=== PATIENT | male | born 1960 | race Caucasian/White ===

== ENCOUNTER 2016-04-02 13:16 | Emergency (ER) | payer OTHER ==
[~2016-04-02] VITALS: Ht 167.6 cm; Wt 103.5 kg
[~2016-04-02 13:16] MED LIST: ASPIR-LOW81 MG PO; AUGMENTIN875 MG PO; CLEOCIN300 MG PO; JANUVIA100 MG PO; OMEGA III EPA1000 MG PO; PRAVASTATIN SOD40 MG PO; PRILOSEC20 MG PO
[2016-04-02 13:41] LABS: HEMATOCRIT 38.3 % (38.0-50.0); MCH 30.3 PG (29.0-34.0); MCHC 35.2 G/DL (30.0-36.0); MCV 85.9 FL (86-99); MEAN PLAT.VOLUME 10.9 uM^3 (9.0-12.4); PLATELET COUNT 186 K/uL (156-360); RBC DIS.WIDTH-CV 12.8 % (11.8-14.6); RBC DIS.WIDTH-SD 39.2 % (39-53); RED BLOOD COUNT 4.46 M/uL (4.00-5.50); WHITE BLOOD COUNT 11.4 K/uL (4.1-10.2)
[2016-04-02 13:51] LABS: CHLORIDE 106 mEq/L (99-109); POTASSIUM 4.5 mEq/L (3.7-5.4); SODIUM 139 mEq/L (136-147)
[2016-04-02 13:53] LABS: GLUCOSE 154 mg/dL (70-99)
[2016-04-02 13:54] LABS: ANION GAP 10 MEQ/L (2-14)
[2016-04-02 13:56] LABS: GFR ESTIMATE (CALCULATED) 56 mL/min/
[2016-04-02 13:57] LABS: UREA NITROGEN (BUN) 23 mg/dL (9-23)
[2016-04-02] MEDS ORDERED: PREDNISONE50 MG PO (14:50)
[2016-04-02] MEDS ORDERED: VALTREX1000 MG PO (14:50)
[2016-04-02 15:02] VITALS: BP 144/80
== END 2016-04-02 15:04 | disposition home or self-care (01) ==
LOC: EME 13:16
DX: G51.0 Bell's palsy (principal)
CPT/HCPCS: 70450; 71020; 80048; 85027; 93005; 99281; 99284; J7512

== ENCOUNTER 2017-09-05 17:05 | Emergency (ER) | payer OTHER ==
[~2017-09-05] VITALS: Ht 167.6 cm; Wt 102.6 kg
[~2017-09-05 17:05] MED LIST changes: +PREDNISONE50 MG PO; +VALTREX1000 MG PO
[2017-09-05 18:26] LABS: PTT 25.2 SEC (25-37)
[2017-09-05 18:27] LABS: CHLORIDE 104 mEq/L (99-109); POTASSIUM 4.4 mEq/L (3.7-5.4); SODIUM 138 mEq/L (136-147)
[2017-09-05 18:28] LABS: GLUCOSE 180 mg/dL (70-99)
[2017-09-05 18:32] LABS: CREATININE 1.5 mg/dL (0.6-1.3); GFR ESTIMATE (CALCULATED) 51 mL/min/ (58.99-99999)
[2017-09-05 18:33] LABS: UREA NITROGEN (BUN) 22 mg/dL (9-23)
[2017-09-05 18:35] LABS: HEMATOCRIT 35.1 % (38.0-50.0); HEMOGLOBIN 12.2 G/DL (12.5-16.6); MCHC 34.8 G/DL (30.0-36.0); MCV 92.1 FL (86-99); NRBC (%) 0.1 /100 WBC (0-0); PLATELET COUNT 237 K/uL (156-360); RBC DIS.WIDTH-CV 16.1 % (11.8-14.6); RBC DIS.WIDTH-SD 54.4 % (39-53); RED BLOOD COUNT 3.81 M/uL (4.00-5.50)
[2017-09-05 18:38] LABS: WHITE BLOOD COUNT 105.4 K/uL (4.1-10.2)
[2017-09-05 19:39] LABS: ABS NEUTROPHIL COUNT 66.6; ANISOCYTOSIS 1+; BAND NEUTROPHILS 26.4 % (0-8.0); EOSINOPHIL ABS CT 0; LYMPHOCYTES 5.6 % (15.0-45.0); MICROCYTOSIS 1+; MONOCYTES 1.9 % (0-9.0); MYELOCYTES 8.5 %; NUCLEATED RBC'S 0.9; OTHER 3.8; PLAT.SUFFICIENCY ADEQUATE; SEG.NEUTROPHILS 36.8 % (46.0-76.0)
[2017-09-05] MEDS ORDERED: DEXILANT60 MG PO (19:48)
[2017-09-05] MEDS ORDERED: RANITIDINE HCL150 MG PO (19:49)
[2017-09-05] MEDS ORDERED: AMLODIPINE BESY10 MG PO (19:50)
[2017-09-05] MEDS ORDERED: LISINOPRIL40 MG PO (19:50)
[2017-09-05] MEDS ORDERED: ATENOLOL25 MG PO (19:50)
[2017-09-05] MEDS ORDERED: GLIMEPIRIDE4 MG PO (19:51)
[2017-09-05 19:59] LABS: TROP-I INTERPRETATION NEGATIVE; TROPONIN-I < 0.01 ng/mL (0.0-0.30)
[2017-09-05 22:38] VITALS: BP 133/75
== END 2017-09-05 22:54 | disposition short-term general hospital (02) ==
LOC: EME 17:05
PROVIDERS: Emergency Medicine; Nurse Practitioner Family
DX: R60.0 Localized edema (principal); R06.02 Shortness of breath; E11.9 Type 2 diabetes mellitus without complications; I10 Essential (primary) hypertension; E78.5 Hyperlipidemia, unspecified; K21.9 Gastro-esophageal reflux disease without esophagitis; Z88.0 Allergy status to penicillin
CPT/HCPCS: 71046; 80048; 82948; 83880; 84484; 85025; 85025 91; 85027; 85610; 85730; 93005; 93971; 99281; 99285